=== PATIENT | male | born 1980 | race Caucasian/White ===

== ENCOUNTER 2022-11-10 21:21 | Emergency (ER) | payer BC ==
--- NOTE | 2022-11-10 21:49 | ED Integumentary General ---
"General Chief Complaint: Skin/Wound Problems Stated Complaint: INFECTION|LET ARM SWOLLEN History of Present Illness Date Seen by Provider: Nov 10, 2022 Time Seen by Provider: 21:41 Initial Comments 42-year-old male is here with complaints of left upper extremity swelling. Patient states that this started on earlier this week is a small bite enoch, possibly from a spider or insect, and then turned into a small blister. It slowly grew and became a larger blister which broke and then he noticed his left arm started to swell. Patient then went to urgent care on Saturday and was given a prescription for Bactrim for 10 days. Patient completed 4 doses of the Bactrim and noticed that today a large blister formed in the same place and patient was concerned so he came to the ER. Patient thinks he had chills in the night for the past couple of days prior to taking antibiotics. Denies shortness of breath, chest pain, palpitation. Allergies and Home Medications Patient Home Medication List Home Medication List Reviewed: Yes Review of Systems Review of Systems Constitutional: see HPI, chills Skin: change in color, other (Insect bite) Past [id number] Hx Patient Social History Tobacco Use?: No Use of E-Cig and/or Vaping dev: No Substance use?: No Alcohol Use?: No Pt feels they are or have been: No Physical Exam Vital Signs Vital Signs - First Documented 11/10/22 21:28 Temp 36.1 Pulse 81 Resp 16 B/P (MAP) 121/87 (98) Pulse Ox 99 O2 Delivery Room Air Capillary Refill : General Appearance: WD/WN, no apparent distress, obese HEENT: PERRL/EOMI, normal ENT inspection, pharynx normal Neck: full range of motion Cardiovascular: regular rate, rhythm, no murmur Respiratory: chest non-tender, lungs clear, normal breath sounds Extremities: normal range of motion, non-tender, swelling (Left upper extremity shows mild swelling from lower one third of upper arm to the wrist which is nonpitting. There is a blister on the elbow region posteriorly which is about 1.25 centimeter diameter which appears to be filled with clear fluid.) Neurologic/Psychiatric: alert, oriented x 3 Skin: other (Erythema of left upper extremity) Skin Problem Character: erythema Lymphatic: no adenopathy Progress/Results/Core Measures Results/Orders Vital Signs/I&O 11/10/22 21:28 Temp 36.1 Pulse 81 Resp 16 B/P (MAP) 121/87 (98) Pulse Ox 99 O2 Delivery Room Air Progress Progress Note : Progress Note 1. INSECT BITE OF LEFT UPPER EXTREMITY: - Reassurance - Patient is on day 2 of Bactrim. Advised patient to continue and complete the course of Bactrim for a total of 10 days as instructed by urgent care. -Advised patient to follow-up with PCP within the next 3 to 7 days. Call for appointment. -Advised to return to the ER if symptoms worsen. -The patient was seen in the ED, and treated appropriately to presentation at a specific point in time. Patient is informed that there is a possibility that disease and illness can evolve and change in acuity rapidly or slowly after patient is discharged from the ER. Precautionary advice given to the patient for immediate return to ER if symptoms worsen or do not resolve, and to seek emergency care sooner rather than later. Pt also advised on the importance of PCP follow up and compliance with management and follow up plan with PCP and/or specialist, as this is part of the management plan. Pt verbally expressed understanding. Departure Impression Primary Impression: Insect bite Additional Impression: Cellulitis of left elbow Disposition: 01 HOME, SELF-CARE Condition: Stable Departure-Patient Inst. Referrals: NO,LOCAL PHYSICIAN (PCP/Family) Primary Care Physician Patient Instructions: Insect Bites and Stings (DC), Cellulitis (Skin Infection), Adult (DC) Add. Discharge Instructions: - Patient is on day 2 of Bactrim. Advised patient to continue and complete the course of Bactrim for a total of 10 days as instructed by urgent care. -Advised patient to follow-up with PCP within the next 3 to 7 days. Call for appointment. -Advised to return to the ER if symptoms worsen. All discharge instructions reviewed with patient and/or family. Voiced understanding. FAIZA HERNANDEZ MD Nov 10, 2022 21:49"
[2022-11-10 22:11] VITALS: BP 121/87
== END 2022-11-10 22:14 | disposition home or self-care (01) ==
LOC: ER FS 21:26
DX: S50.362A Insect bite (nonvenomous) of left elbow, initial encounter (principal); L03.114 Cellulitis of left upper limb; Z28.310 Unvaccinated for COVID-19; W57.XXXA Bitten or stung by nonvenomous insect and other nonvenomous arthropods, initial encounter
CPT/HCPCS: 99281